=== PATIENT | male | born 1995 | race African-American/Black ===

== ENCOUNTER 2017-03-23 13:16 | Emergency (ER) | payer MEDICARE ==
[2017-03-23] MEDS ORDERED: diphenhydrAMINE 12.5 MG/5 ML UDCUP ONE (13:57)
[2017-03-23] MEDS ORDERED: Ketorolac Tromethamine 30 MG/ML VIAL ONE (13:57)
[2017-03-23] MEDS ORDERED: Metoclopramide HCl 10 MG/2 ML VIAL ONE (13:57)
[2017-03-23] MEDS ORDERED: diphenhydrAMINE 50 MG/ML VIAL ONE (13:58)
--- NOTE | 2017-03-23 14:28 | RAD ---
RADIOGRAPH SHUNTOGRAM SEVEN VIEWS: Date: 03-23-17 ATTN: Marilyn watts. This is a 7 view study. History: 22-year-old male with headache. History of hydrocephalus. FINDINGS: [employer] shunt catheter enters through a right parietal jhoan hole, and travels anteriorly with distal tip t o the right of midline in the anterior intracranial region. It descends the right neck and right para median anterior chest, then loops in the right lateral abdomen, with distal tip to the left of midlin e in the pelvis. There is no evidence of disruption or kink in the radiopaque portions of the cathete r. There is a fragment of an abandoned shunt catheter more anterolaterally in the right side of the h ead associated with a another right parietal jhoan hole. There is a large gap between this catheter fr agment and another catheter fragment in the neck, with inferior tip at the cervicothoracic junction, which parallels the other catheter in the neck. Lungs are clear. Cardiomediastinal silhouette is normal. Unremarkable cervical spine and prevertebral soft tissues. Paranasal sinuses are clear. Lack of bowel gas. No evidence of organomegaly. IMPRESSION: 1. Right sided ventriculoperitoneal shunt catheter without disruption identified. 2. Old, abandoned shunt catheter fragments in the head and neck. POS: [facility]
--- NOTE | 2017-03-23 15:42 | CT ---
CT BRAIN NONCONTRAST: DATE: 03-23-17 TIME: 2:50 p.m. HISTORY: 22-year-old male with history of hydrocephalus presents with acute headache. COMPARISON: 09-06-16 FINDINGS: There is a [employer] shunt catheter entering through a right parietal jhoan hole, traveling in the posteroant erior direction, probably through the body of the right lateral ventricle, crossing the midline at th e level of the foramen of [place], probably traversing a portion of the frontal horn of the contralater al left lateral ventricle, with distal tip in the left frontal lobe brain parenchyma approximately 1 cm anterior to the frontal horn. The lateral ventricles are bilaterally collapsed and slit like, exce pt for a small 2 cm cystic portion posterior to the right occipital horn. There is no significant dil ation of the third or fourth ventricles. There is a second, abandoned [employer] RO[employer] shunt catheter fragment ente ring through a more anterolaterally placed right parietal jhoan hole, traversing the subdural space, b ut not entering brain parenchyma. Again noted are the multifocal supratentorial dural calcifications. There is no mass effect, midline shift, acute intra or extraaxial hemorrhage, or extraaxial fluid co llection. There is diffuse cerebral parenchymal volume loss, much greater than expected for age. Ther e is an old, abandoned third left upper parietal jhoan hole. No acute calvarial fracture. No interval change in the intracranial contents compared to 09-06-16. There is multifocal, patchy partial opacific ation of frontoethmoidal recesses bilaterally, left greater than right; and the pattern of mild opaci fication of some of the ethmoid air cells, has changed compared to the prior CT. Most of the sphenoid air cells, sphenoid sinus, and bilateral middle ear cavities, are grossly clear. There is a paucity of mastoid air cells on the right. IMPRESSION: 1. No acute intracranial findings. 2. Right sided ventriculoperitoneal shunt catheter. 3. No evidence of shunt malfunction. No hydrocephalus. 4. The lateral ventricles are collapsed and slit like, questionable for over shunting. This is unchan ged since the previous CT. 5. Old, abandoned right sided DR[employer] RO[employer] shunt catheter fragment. 6. Diffuse involutional changes of the cerebrum. 7. No significant interval change in the intracranial contents since 09-06-2016. RICHARD Rosales POS: [facility]
== END 2017-03-23 16:00 | disposition home or self-care (01) ==
LOC: ERS 13:16
DX: R51 Headache (principal)
CPT/HCPCS: 70450; 75809; 96365; 96375; J1200; J1885; J2765